=== PATIENT | male | born 1960 | race African-American/Black ===

== ENCOUNTER 2020-06-13 17:03 | Emergency (ER) | payer MEDICARE ==
[~2020-06-13 17:03] MED LIST: ASPIRIN EC81 MG PO; COREG12.5 MG PO; COZAAR50 MG PO; ELAVIL25 MG PO; HALOPERIDOL2 MG PO; HUMALOG SC; LANTUS **100 UNITS/ SC; LEVEMIR FL100 UNIT/1 SC; LEXAPRO 10MG TA10 MG PO; LIPITOR40 MG PO; NEURONTIN300 MG PO; NORVASC5 MG PO; PANTOPRAZOLE SO40 MG PO; PLAVIX75 MG PO; PRINIVIL10 MG PO; SEROQUEL 25MG T25 MG PO; TIZANIDINE HCL2 MG PO
[2020-06-13 18:23] LABS: BASOPHIL 1.6 % (0-2); EOSINOPHIL 9.8 % (0-5); HCT 35.5 % (42.0-52.0); LYMPHOCYTE 25.1 % (15-48); MCH 27.5 pg (25.0-31.0); MCV 88.8 fL (78.0-100.0); MONOCYTE 6.4 % (0-12); MPV 12.4 fL (6.0-9.5); NEUTROPHIL 56.9 % (41-80); NRBC 0; PLT 202 K/uL (150-400); RDW 12.8 % (11.5-14.0); WBC 10.7 K/uL (4.0-10.5)
[2020-06-13 18:32] LABS: INR 1.06 (0.9-1.2); PROTHROMBIN TIME 13.1 SECONDS (11.4-13.6); PTT 29.6 SECONDS (22.2-34.7)
[2020-06-13 18:41] LABS: ALBUMIN 2.7 g/dL (3.4-5.0); BILIRUBIN - TOTAL 0.4 mg/dL (0.2-1.0); BUN/CREAT RATIO (CALC) 9.7 RATIO; CREATININE 2.48 mg/dL (0.67-1.17); GLOBULIN (CALCULATION) 4.1 g/dL; TOTAL PROTEIN 6.8 g/dL (6.4-8.2)
[2020-06-13] MEDS ORDERED: LASIX20 MG PO (20:35)
== END 2020-06-13 20:55 | disposition home or self-care (01) ==
LOC: FER 17:03
PROVIDERS: Emergency Medicine
DX: I50.9 Heart failure, unspecified (principal); R03.0 Elevated blood-pressure reading, without diagnosis of hypertension; R79.89 Other specified abnormal findings of blood chemistry; E11.9 Type 2 diabetes mellitus without complications; F03.90 Unspecified dementia, unspecified severity, without behavioral disturbance, psychotic disturbance, mood disturbance, and anxiety; Z95.5 Presence of coronary angioplasty implant and graft; Z89.511 Acquired absence of right leg below knee; Z20.822 Contact with and (suspected) exposure to COVID-19
CPT/HCPCS: 36415; 71045; 80053; 83880; 84484; 85025; 85610; 85730; 93005; U0002

== ENCOUNTER 2020-10-17 14:34 | Inpatient (IN) | payer MEDICARE ==
[~2020-10-17] VITALS: Ht 177.8 cm; Wt 99.3 kg
[~2020-10-17 14:34] MED LIST changes: +LASIX20 MG PO
[2020-10-17 17:22] LABS: BASOPHIL 1.3 % (0-2); EOSINOPHIL 7.5 % (0-5); HCT 33.8 % (42.0-52.0); HGB 10.6 g/dl (13.2-18.0); LYMPHOCYTE 22.4 % (15-48); MCH 27.5 pg (25.0-31.0); MCHC 31.4 g/dL (32.0-36.0); MCV 87.8 fL (78.0-100.0); MONOCYTE 6.2 % (0-12); MPV 12.2 fL (6.0-9.5); NEUTROPHIL 62.3 % (41-80); NRBC 0; PLT 221 K/uL (150-400); RBC 3.85 M/uL (4.70-6.00); RDW 12.9 % (11.5-14.0); WBC 9.9 K/uL (4.0-10.5)
[2020-10-17 17:32] LABS: ALBUMIN 2.5 g/dL (3.4-5.0); BILIRUBIN - TOTAL 0.2 mg/dL (0.2-1.0); BUN/CREAT RATIO (CALC) 9.8 RATIO; CREATININE 3.27 mg/dL (0.67-1.17); GLOBULIN (CALCULATION) 4.7 g/dL; POTASSIUM 3.2 mmol/L (3.5-5.1); TOTAL PROTEIN 7.2 g/dL (6.4-8.2)
[2020-10-17 20:51] LABS: BILIRUBIN NEGATIVE (NEGATIVE); BLOOD 1+ Ery/uL (NEGATIVE); CLARITY CLEAR (CLEAR); COLOR YELLOW (YELLOW); GLUCOSE (U) TRACE mg/dL (NORMAL); LEUKOCYTES NEGATIVE Leu/uL (NEGATIVE); NITRITE NEGATIVE (NEGATIVE); PROTEIN 3+ mg/dL (NEGATIVE); UROBILINOGEN 0.2 mg/dL (0.2-1.0); pH 6.5 (5.0-9.0)
[2020-10-17 21:01] LABS: URINARY RBC RARE
[2020-10-18 00:30] LABS: BUN/CREAT RATIO (CALC) 9.4 RATIO; CREATININE 3.41 mg/dL (0.67-1.17); MAGNESIUM 1.6 mg/dL (1.8-2.4); POTASSIUM 3.2 mmol/L (3.5-5.1)
[2020-10-18 06:42] LABS: INR 1.09 (0.9-1.2); PROTHROMBIN TIME 13.5 SECONDS (11.8-13.4); PTT 31.5 SECONDS (24.4-34.7)
[2020-10-18 06:43] LABS: BASOPHIL 1.3 % (0-2); EOSINOPHIL 7.8 % (0-5); HCT 31.3 % (42.0-52.0); HGB 9.9 g/dl (13.2-18.0); LYMPHOCYTE 23.4 % (15-48); MCH 27.4 pg (25.0-31.0); MCHC 31.6 g/dL (32.0-36.0); MCV 86.7 fL (78.0-100.0); MONOCYTE 5.5 % (0-12); MPV 12.6 fL (6.0-9.5); NEUTROPHIL 61.8 % (41-80); NRBC 0; PLT 226 K/uL (150-400); RBC 3.61 M/uL (4.70-6.00); RDW 12.7 % (11.5-14.0); WBC 9.5 K/uL (4.0-10.5)
[2020-10-18 07:11] LABS: ALBUMIN 2.4 g/dL (3.4-5.0); BILIRUBIN - TOTAL 0.4 mg/dL (0.2-1.0); CREATININE 3.45 mg/dL (0.67-1.17); GLOBULIN (CALCULATION) 3.8 g/dL; PHOSPHORUS 4.1 mg/dL (2.6-4.7); POTASSIUM 3.9 mmol/L (3.5-5.1); TOTAL PROTEIN 6.2 g/dL (6.4-8.2)
[2020-10-18] MEDS ORDERED: LASIX20 MG PO (08:52)
[2020-10-18] MEDS ORDERED: HYDRALAZINE25 MG PO (08:54)
[2020-10-18] MEDS ORDERED: VITAMIN D21250 MCG PO (08:54)
[2020-10-18] MEDS ORDERED: TRAZODONE HCL150 MG PO (08:56)
[2020-10-18 15:56] LABS: RETICULOCYTE COUNT 1.9 % (1.0-2.0)
[2020-10-18 16:07] LABS: IRON % SATURATION 12.9 %SAT (20-50)
[2020-10-18 16:34] LABS: FOLIC ACID (SERUM) 9.8 ng/mL (8.6-58.9)
--- NOTE | 2020-10-19 04:13 | NUR ---
PATIENT HAS HAD NO URINE OUTPUT THIS SHIFT, NOTIFIED PROVIDER WITH BLADDER SCAN RESULTS OF 297, PATIENT HAS BEEN URINATING ON HIS OWN BUT STATES THAT HE DOES NOT FEEL LIKE HE HAS TO GO AT THIS TIME. OK TO WAIT LONGER PER EMELYN CONTRERAS. WILL CONTINUE TO MONITOR AND NOTIFY PROVIDER OF CHANGES.
[2020-10-19 05:52] LABS: BASOPHIL 1.4 % (0-2); EOSINOPHIL 9.2 % (0-5); HCT 26.1 % (42.0-52.0); HGB 8.3 g/dl (13.2-18.0); LYMPHOCYTE 29.8 % (15-48); MCH 27.9 pg (25.0-31.0); MCHC 31.8 g/dL (32.0-36.0); MCV 87.6 fL (78.0-100.0); MONOCYTE 7.2 % (0-12); MPV 11.8 fL (6.0-9.5); NEUTROPHIL 52.1 % (41-80); NRBC 0; PLT 187 K/uL (150-400); RBC 2.98 M/uL (4.70-6.00); RDW 12.9 % (11.5-14.0); WBC 7.1 K/uL (4.0-10.5)
[2020-10-19 06:15] LABS: BILIRUBIN - TOTAL 0.3 mg/dL (0.2-1.0); BUN/CREAT RATIO (CALC) 8.7 RATIO; CREATININE 3.92 mg/dL (0.67-1.17); GLOBULIN (CALCULATION) 3.9 g/dL; PHOSPHORUS 4.3 mg/dL (2.6-4.7); POTASSIUM 3.2 mmol/L (3.5-5.1); TOTAL PROTEIN 5.9 g/dL (6.4-8.2)
--- NOTE | 2020-10-19 11:33 | NUR ---
10/19/20 Mr. Styles lives at home with his spouse. His spouse is his legal guardian. Mr. Styles has a rw, cane, wc, and 3in1. He uses a cane for ambulation. Ms. Styles has requested resources r/t bathing assitance, counseling for depression and patient's refusal to take medications. Ms. Styles choice [facility]. A referral was made to [facility] via [facility]. The HHR included a long term care social worker to evaluate for a Medicaid Waiver program. - Ms. Styles was educated to [facility], [facility] - respite, [facility], and In-Home services, Adult Day[facility] and [facility]. - Please notify [facility] at [phone] if patient is discharged over the weekend.
--- NOTE | 2020-10-19 14:40 | NUR ---
ENCOURAGED MR. RECIO TO USE URINAL IF ABLE TO. HE STATED HE DID NOT NEED TO GO. TO MY KNOWLEDGE HE IS CONTENIENT AND NO EVIDENCE OTHERWISE. BLADDER SCAN SHOWED ONLY 97ML IN BLADDER AT 1430. SCAN WAS DONE DUE TO NO UOP DURING PRIVATE WEALTH ADVISOR AND THUS FAR TODAY.
--- NOTE | 2020-10-19 16:44 | NUR ---
REINFORCED TO FAMILY THAT THERE IS TO BE ONLY 2 VISTORS PER PATIENT IN THE BUILDING AT A TIME. WAITING ROOMS ARE STILL CLOSED DUE TO COVID. FAMILY VERBALIZES UNDERSTANDING.
--- NOTE | 2020-10-19 18:58 | NUR ---
BLADDER SCAN AT [address] MONAHAN ANSWERED DR. CURRY PHONE AND PUT IN ORDER TO INSERT RODRIGEZ.
--- NOTE | 2020-10-19 19:27 | NUR ---
ORDERED RODRIGEZ B/C PT. HAD NOT VOIDED IN 24HRS. WENT IN TO TALK TO PT. WITH DAYSHIFT RNS. PT. REFUSED RODRIGEZ BUT AGREED TO TRY AND VOID. PT. VOIDED 675. DAY SHIFT RN NOTIFIED DIRECTOR MOBILE.
[2020-10-20 04:08] LABS: BASOPHIL 1.6 % (0-2); EOSINOPHIL 11.6 % (0-5); HCT 29.8 % (42.0-52.0); HGB 9.1 g/dl (13.2-18.0); LYMPHOCYTE 29.5 % (15-48); MCH 27.4 pg (25.0-31.0); MCHC 30.5 g/dL (32.0-36.0); MCV 89.8 fL (78.0-100.0); MONOCYTE 7.3 % (0-12); MPV 12.4 fL (6.0-9.5); NEUTROPHIL 49.7 % (41-80); NRBC 0; PLT 182 K/uL (150-400); RBC 3.32 M/uL (4.70-6.00); RDW 13.1 % (11.5-14.0); WBC 7.1 K/uL (4.0-10.5)
--- NOTE | 2020-10-20 05:30 | NUR ---
EMELYN NOTIFIED ME TO "RIDE" OUT THE PT.S BLOOD PRESSURES BECAUSE THEY HAVE CHANGED SO MUCH OF HIS BP MEDICATIONS TO FIND SOMETHING THAT HELPS BRING THEM DOWN. BP IS CURRENTLY THE BEST IT HAS BEEN ON MY SHIFT AT 153/69. ER, RN
[2020-10-20 07:53] LABS: BUN/CREAT RATIO (CALC) 8.8 RATIO; CREATININE 3.73 mg/dL (0.67-1.17); POTASSIUM 4.3 mmol/L (3.5-5.1)
[2020-10-20] MEDS ORDERED: APRESOLINE100 MG PO (10:53)
[2020-10-20] MEDS ORDERED: CARDURA1 MG PO (10:53)
[2020-10-20] MEDS ORDERED: POLY-IRON150 MG PO (10:53)
--- NOTE | 2020-10-20 13:56 | NUR ---
PATIENT DISCHARGED BY WHEELCHAIR ACCOMPANIED BY AND NURSE. DISCHARGE INSTRUCTIONS GIVEN TO AND PATIENT. VERBALIZED UNDERSTANDING. REITERATED MEDICATION CHANGES TO . LAURA NOIFIED OF DISCHARGE. PHONE NUMBERS FOR LAURA AND DR BATES GIVEN TO .
== END 2020-10-20 13:40 | disposition home health service (06) | DRG 291 ==
LOC: FER 14:34 → FICU 20:36
PROVIDERS: Emergency Medicine Emergency Medical Services; Nurse Practitioner; ADMIT Internal Medicine
DX: I13.0 Hypertensive heart and chronic kidney disease with heart failure and stage 1 through stage 4 chronic kidney disease, or unspecified chronic kidney disease (principal); I50.21 Acute systolic (congestive) heart failure; I16.1 Hypertensive emergency; N17.9 Acute kidney failure, unspecified; N18.4 Chronic kidney disease, stage 4 (severe); I47.2 Ventricular tachycardia; I42.9 Cardiomyopathy, unspecified; E11.22 Type 2 diabetes mellitus with diabetic chronic kidney disease; Z79.899 Other long term (current) drug therapy; Z79.82 Long term (current) use of aspirin; Z79.4 Long term (current) use of insulin; E78.5 Hyperlipidemia, unspecified; I73.9 Peripheral vascular disease, unspecified; F41.9 Anxiety disorder, unspecified; F32.9 Major depressive disorder, single episode, unspecified; I25.10 Atherosclerotic heart disease of native coronary artery without angina pectoris; Z95.5 Presence of coronary angioplasty implant and graft; F03.90 Unspecified dementia, unspecified severity, without behavioral disturbance, psychotic disturbance, mood disturbance, and anxiety; Z89.511 Acquired absence of right leg below knee; Z83.3 Family history of diabetes mellitus; Z80.8 Family history of malignant neoplasm of other organs or systems; E11.65 Type 2 diabetes mellitus with hyperglycemia; Z91.19 Patient's noncompliance with other medical treatment and regimen
CPT/HCPCS: 36415; 70450; 71045; 76770; 80048; 80053; 80061; 81001; 82553; 82607; 82746; 82962; 83540; 83550; 83735; 83880; 84100; 84484; 85025; 85610; 85730; 93005; 94010; 94762; J0360; J1644; J1940; J2060; J2916; J3420; J3475; J7030; J7120

== ENCOUNTER 2020-10-21 14:56 | Emergency (ER) | payer MEDICARE ==
[~2020-10-21 14:56] MED LIST changes: +APRESOLINE100 MG PO; +CARDURA1 MG PO; +HYDRALAZINE25 MG PO; +POLY-IRON150 MG PO; +TRAZODONE HCL150 MG PO; +VITAMIN D21250 MCG PO
[2020-10-21 16:23] LABS: INR 1.12 (0.9-1.2); PROTHROMBIN TIME 13.8 SECONDS (11.8-13.4)
[2020-10-21 16:27] LABS: BASOPHIL 1.1 % (0-2); EOSINOPHIL 8.7 % (0-5); HCT 30.3 % (42.0-52.0); HGB 9.2 g/dl (13.2-18.0); MCH 27.7 pg (25.0-31.0); MCHC 30.4 g/dL (32.0-36.0); MCV 91.3 fL (78.0-100.0); MONOCYTE 7.9 % (0-12); MPV 12.8 fL (6.0-9.5); NEUTROPHIL 62.1 % (41-80); NRBC 0; PLT 205 K/uL (150-400); RBC 3.32 M/uL (4.70-6.00); RDW 13.3 % (11.5-14.0); WBC 8.2 K/uL (4.0-10.5)
[2020-10-21 16:28] LABS: ALBUMIN 2.5 g/dL (3.4-5.0); BILIRUBIN - TOTAL 0.2 mg/dL (0.2-1.0); BUN/CREAT RATIO (CALC) 8.9 RATIO; CREATININE 3.83 mg/dL (0.67-1.17); GLOBULIN (CALCULATION) 3.8 g/dL; POTASSIUM 4.5 mmol/L (3.5-5.1); TOTAL PROTEIN 6.3 g/dL (6.4-8.2)
[2020-10-21 16:40] LABS: CKMB 1.9 ng/mL (0.0-3.6)
== END 2020-10-21 17:49 | disposition home or self-care (01) ==
LOC: FER 14:56
PROVIDERS: Emergency Medicine
DX: I13.2 Hypertensive heart and chronic kidney disease with heart failure and with stage 5 chronic kidney disease, or end stage renal disease (principal); I50.9 Heart failure, unspecified; E11.22 Type 2 diabetes mellitus with diabetic chronic kidney disease; N18.6 End stage renal disease; Z95.5 Presence of coronary angioplasty implant and graft
CPT/HCPCS: 36415; 36600; 71045; 71250; 80053; 82553; 82803; 83880; 84484; 85025; 85610; 85730; 93005; J1940

== ENCOUNTER 2020-12-10 22:19 | Inpatient (IN) | payer MEDICARE ==
[~2020-12-10] VITALS: Ht 178 cm; Wt 88.1 kg
[2020-12-11 00:15] LABS: BASOPHIL 0.7 % (0-2); EOSINOPHIL 1.5 % (0-5); HCT 23.8 % (42.0-52.0); HGB 7.1 g/dl (13.2-18.0); LYMPHOCYTE 6.2 % (15-48); MCH 26.8 pg (25.0-31.0); MCHC 29.8 g/dL (32.0-36.0); MCV 89.8 fL (78.0-100.0); MONOCYTE 5.1 % (0-12); NEUTROPHIL 85.9 % (41-80); NRBC 0; PLT 347 K/uL (150-400); RBC 2.65 M/uL (4.70-6.00); RDW 13.5 % (11.5-14.0); WBC 19.4 K/uL (4.0-10.5)
[2020-12-11 00:33] LABS: ALBUMIN 1.8 g/dL (3.4-5.0); BILIRUBIN - TOTAL 1.1 mg/dL (0.2-1.0); BUN/CREAT RATIO (CALC) 14.6 RATIO; CREATININE 4.51 mg/dL (0.67-1.17); POTASSIUM 4.4 mmol/L (3.5-5.1); TOTAL PROTEIN 7.8 g/dL (6.4-8.2)
[2020-12-11 05:16] LABS: BILIRUBIN NEGATIVE (NEGATIVE); BLOOD 1+ Ery/uL (NEGATIVE); CLARITY CLEAR (CLEAR); COLOR YELLOW (YELLOW); GLUCOSE (U) TRACE mg/dL (NORMAL); LEUKOCYTES NEGATIVE Leu/uL (NEGATIVE); NITRITE NEGATIVE (NEGATIVE); PROTEIN 3+ mg/dL (NEGATIVE); SPECIFIC GRAVITY 1.025 (1.001-1.030); pH 5.5 (5.0-9.0)
[2020-12-11 05:21] LABS: BACTERIA 1+; URINARY WBC RARE
[2020-12-11 05:22] LABS: AMORPHOUS URATES CRYSTALS MODERATE; SQUAMOUS EPITHELIAL CELLS RARE
[2020-12-11 07:28] LABS: C-REACTIVE PROTEIN >18.00 mg/dL (<=0.90); MAGNESIUM 1.5 mg/dL (1.8-2.4); PHOSPHORUS 4.3 mg/dL (2.6-4.7)
[2020-12-11 07:44] LABS: BUN/CREAT RATIO (CALC) 15.1 RATIO; CREATININE 4.65 mg/dL (0.67-1.17); MAGNESIUM 1.6 mg/dL (1.8-2.4); PHOSPHORUS 4.3 mg/dL (2.6-4.7); POTASSIUM 4.1 mmol/L (3.5-5.1)
[2020-12-11 07:56] LABS: HCT 19.9 % (42.0-52.0); MCH 27.3 pg (25.0-31.0); MCHC 31.2 g/dL (32.0-36.0); MCV 87.7 fL (78.0-100.0); MPV 11.5 fL (6.0-9.5); RBC 2.27 M/uL (4.70-6.00); RDW 13.8 % (11.5-14.0); WBC 19.1 K/uL (4.0-10.5)
[2020-12-11 08:02] LABS: HGB 6.2 g/dl (13.2-18.0)
[2020-12-11 08:26] LABS: RETICULOCYTE COUNT 1.4 % (1.0-2.0)
[2020-12-11 09:00] LABS: IRON % SATURATION 18.9 %SAT (20-50)
[2020-12-11 09:27] LABS: FOLIC ACID (SERUM) 13.2 ng/mL (8.6-58.9)
[2020-12-11] MEDS ORDERED: PLAVIX75 MG PO (11:26)
[2020-12-11] MEDS ORDERED: HYDRALAZINE25 MG PO (11:27)
[2020-12-11] MEDS ORDERED: ATARAX25 MG PO (11:28)
[2020-12-11] MEDS ORDERED: LANTUS100 UNIT/1 SC (11:29)
[2020-12-12 05:52] LABS: BASOPHIL 0.8 % (0-2); EOSINOPHIL 5.9 % (0-5); MCH 27.5 pg (25.0-31.0); MCHC 31.8 g/dL (32.0-36.0); MCV 86.3 fL (78.0-100.0); MPV 11.2 fL (6.0-9.5); NEUTROPHIL 72.5 % (41-80); NRBC 0; PLT 293 K/uL (150-400); RBC 2.55 M/uL (4.70-6.00); RDW 13.8 % (11.5-14.0); WBC 16.5 K/uL (4.0-10.5)
[2020-12-12 06:34] LABS: ALBUMIN 1.4 g/dL (3.4-5.0); BILIRUBIN - TOTAL 0.7 mg/dL (0.2-1.0); BUN/CREAT RATIO (CALC) 15.2 RATIO; CREATININE 4.4 mg/dL (0.67-1.17); GLOBULIN (CALCULATION) 5.4 g/dL; POTASSIUM 3.9 mmol/L (3.5-5.1); TOTAL PROTEIN 6.8 g/dL (6.4-8.2)
--- NOTE | 2020-12-12 13:13 | NUR ---
SPOKE WITH REGARDING HER REQUEST FOR SKILLED PLACEMENT OF HER . SHE STATED THAT SHE WOULD LIKE FOR HIM TO GO TO REHAB. SHE REQUESTED [place]. SPOKE WITH PT. HE STATED THAT HE DID NOT WANT TO GO TO SKILLED FACILITY,BUT WANTED TO RETURN HOME AND DID NOT WANT HOME [facility]AT[facility]. TC TO , HER VOICE MAIL IS FULL. CONTACTED SON FOR HIM TO GIVE HIS MOTHER A MESSAGE TO CONTACT ME.
[2020-12-13 06:18] LABS: ALBUMIN 1.4 g/dL (3.4-5.0); BILIRUBIN - TOTAL 0.4 mg/dL (0.2-1.0); BUN/CREAT RATIO (CALC) 15.3 RATIO; CREATININE 4.76 mg/dL (0.67-1.17); EOSINOPHIL 8.3 % (0-5); GLOBULIN (CALCULATION) 5.2 g/dL; HCT 22.4 % (42.0-52.0); LYMPHOCYTE 17.6 % (15-48); MAGNESIUM 1.9 mg/dL (1.8-2.4); MCH 27.3 pg (25.0-31.0); MCHC 31.3 g/dL (32.0-36.0); MCV 87.5 fL (78.0-100.0); MONOCYTE 6.8 % (0-12); MPV 11.5 fL (6.0-9.5); NEUTROPHIL 65.6 % (41-80); NRBC 0; PLT 296 K/uL (150-400); RBC 2.56 M/uL (4.70-6.00); TOTAL PROTEIN 6.6 g/dL (6.4-8.2); WBC 12.6 K/uL (4.0-10.5)
--- NOTE | 2020-12-13 15:47 | NUR ---
SPOKE WITH THIS DATE. SHE ADVISED THAT SHE IS PT. GUARDIAN. SHE WOULD LIKE FOR HIM TO GO [facility] [place]. SENT REFERRAL TO [facility].
[2020-12-14 06:21] LABS: EOSINOPHIL 7.8 % (0-5); HGB 7.1 g/dl (13.2-18.0); LYMPHOCYTE 17.3 % (15-48); MCH 27.4 pg (25.0-31.0); MCHC 30.9 g/dL (32.0-36.0); MCV 88.8 fL (78.0-100.0); MONOCYTE 5.8 % (0-12); MPV 11.1 fL (6.0-9.5); NEUTROPHIL 67.3 % (41-80); NRBC 0; PLT 294 K/uL (150-400); RBC 2.59 M/uL (4.70-6.00); RDW 14.1 % (11.5-14.0); WBC 14.3 K/uL (4.0-10.5)
[2020-12-14 06:59] LABS: BUN/CREAT RATIO (CALC) 15.1 RATIO; CREATININE 5.04 mg/dL (0.67-1.17); PHOSPHORUS 4.9 mg/dL (2.6-4.7); POTASSIUM 4.3 mmol/L (3.5-5.1)
[2020-12-14] MEDS ORDERED: MARINOL5 MG PO (13:44)
[2020-12-14 16:01] LABS: EOSINOPHIL 8.5 % (0-5); HCT 25.3 % (42.0-52.0); HGB 7.9 g/dl (13.2-18.0); LYMPHOCYTE 12.3 % (15-48); MCH 27.8 pg (25.0-31.0); MCHC 31.2 g/dL (32.0-36.0); MCV 89.1 fL (78.0-100.0); NEUTROPHIL 72.4 % (41-80); NRBC 0; PLT 342 K/uL (150-400); RBC 2.84 M/uL (4.70-6.00); RDW 13.9 % (11.5-14.0); WBC 15.3 K/uL (4.0-10.5)
[2020-12-14 16:19] LABS: BUN/CREAT RATIO (CALC) 14.7 RATIO; CREATININE 4.97 mg/dL (0.67-1.17); PHOSPHORUS 4.6 mg/dL (2.6-4.7); POTASSIUM 4.6 mmol/L (3.5-5.1)
--- NOTE | 2020-12-14 17:25 | NUR ---
DUE TO [facility] WITH [facility] NOT RETURNING MY PHONE CALLS I CONTACTED HANY, OPERATIONS TECH AT [facility]. SHE ADVISED THAT THEY WOULD ACCEPT PATIENT, HOWEVER HE IS [facility] AND THEY HAVE NOT STARTED PRECERT. I EXPLAINED TO HANY, I WAS UNDER THE IMPRESSION THAT THE PREAUTH HAD BEEN STARTED. HANY ADVISED THAT THEY WOULD NOT HEAR FROM INSURANCE UNTIL THURSDAY. ADVISED DR. CURRY OF THIS INFORMATION.
[2020-12-15 03:42] LABS: EOSINOPHIL 8.6 % (0-5); HCT 23.3 % (42.0-52.0); HGB 7.3 g/dl (13.2-18.0); LYMPHOCYTE 14.8 % (15-48); MCH 27.7 pg (25.0-31.0); MCHC 31.3 g/dL (32.0-36.0); MCV 88.3 fL (78.0-100.0); MONOCYTE 5.3 % (0-12); MPV 11.5 fL (6.0-9.5); NEUTROPHIL 69.4 % (41-80); NRBC 0; PLT 347 K/uL (150-400); RBC 2.64 M/uL (4.70-6.00); WBC 15.3 K/uL (4.0-10.5)
[2020-12-15 03:53] LABS: CREATININE 5.22 mg/dL (0.67-1.17); MAGNESIUM 1.8 mg/dL (1.8-2.4); PHOSPHORUS 4.7 mg/dL (2.6-4.7); POTASSIUM 4.6 mmol/L (3.5-5.1)
[2020-12-15 04:31] LABS: LYMPHOCYTE(M) 13 % (15-48); MONOCYTE(M) 3 % (0-12); NEUTROPHILS(M) 75 % (41-80); TOTAL CELL COUNT 100
[2020-12-15 04:32] LABS: BASOPHIL(M) 1 % (0-2); EOSINOPHIL(M) 8 % (0-5)
[2020-12-15 04:34] LABS: PLATELET ESTIMATE NORMAL
[2020-12-15 04:35] LABS: PLATELET MORPHOLOGY NORMAL
[2020-12-15 04:37] LABS: ANISOCYTOSIS SLIGHT; DACRYOCYTES (TEAR DROP CELLS) RARE
--- NOTE | 2020-12-15 12:33 | NUR ---
CALL TO [facility] NO ROHO IN FACILITY, MESSAGE LEFT, ALSO FAXED REQUEST. LEFT BUTTOCK SMALL SUPERFICIAL OPEN AREA PINK CENTER, LEFT FOOT OUTER EDGE VERY GUMMY YELLOW DRAINAGE WITH OPEN AREA WITH CRUSTY GRANULAR TISSUE THICK TO EDGES, WOUND CONSULT PUT IN TO RE-EVAL. INFORMED SISTER THAT IF WE COULD GET A ROHO MATTRESS WE WOULD PUT ONE ON HIS BED. MD INFORMED OF LEFT FOOT AND SISTER'S CONCERNS
[2020-12-16 06:02] LABS: BASOPHIL 1.1 % (0-2); EOSINOPHIL 8.1 % (0-5); HCT 22.8 % (42.0-52.0); HGB 6.9 g/dl (13.2-18.0); LYMPHOCYTE 16.5 % (15-48); MCH 27.3 pg (25.0-31.0); MCHC 30.3 g/dL (32.0-36.0); MCV 90.1 fL (78.0-100.0); MONOCYTE 5.2 % (0-12); MPV 10.5 fL (6.0-9.5); NEUTROPHIL 68.2 % (41-80); NRBC 0; PLT 326 K/uL (150-400); RBC 2.53 M/uL (4.70-6.00); RDW 14.1 % (11.5-14.0); WBC 13.7 K/uL (4.0-10.5)
[2020-12-16 06:33] LABS: IRON % SATURATION 32.7 %SAT (20-50)
[2020-12-16 06:53] LABS: BUN/CREAT RATIO (CALC) 15.5 RATIO; CREATININE 4.64 mg/dL (0.67-1.17); MAGNESIUM 1.8 mg/dL (1.8-2.4); PHOSPHORUS 4.3 mg/dL (2.6-4.7); POTASSIUM 4.8 mmol/L (3.5-5.1)
[2020-12-16 12:35] LABS: BILIRUBIN NEGATIVE (NEGATIVE); BLOOD 1+ Ery/uL (NEGATIVE); CLARITY CLEAR (CLEAR); COLOR YELLOW (YELLOW); GLUCOSE (U) TRACE mg/dL (NORMAL); LEUKOCYTES NEGATIVE Leu/uL (NEGATIVE); NITRITE NEGATIVE (NEGATIVE); PROTEIN 2+ mg/dL (NEGATIVE); SPECIFIC GRAVITY 1.025 (1.001-1.030); UROBILINOGEN 0.2 mg/dL (0.2-1.0); pH 5.5 (5.0-9.0)
[2020-12-16 12:42] LABS: AMORPHOUS URATES CRYSTALS MODERATE; BACTERIA TRACE
[2020-12-16 12:49] LABS: URINE CREATININE 93.52 mg/dL (29.00-226.00)
--- NOTE | 2020-12-16 19:50 | NUR ---
1 PRBC IS ORDERED FOR HGB OF 6.9.PATIENT IS REFUSING UNIT OF BLOOD. GRADES 7 AND 8 VISITING TEACHER NOTIFIED
--- NOTE | 2020-12-16 22:20 | NUR ---
PATIENT NOW AGREES TO RECEIVE PRBC
[2020-12-17 03:14] LABS: BASOPHIL 1.1 % (0-2); EOSINOPHIL 7.2 % (0-5); HCT 26.6 % (42.0-52.0); HGB 8.3 g/dl (13.2-18.0); LYMPHOCYTE 12.9 % (15-48); MCH 27.9 pg (25.0-31.0); MCHC 31.2 g/dL (32.0-36.0); MCV 89.3 fL (78.0-100.0); MONOCYTE 5.1 % (0-12); MPV 10.6 fL (6.0-9.5); NEUTROPHIL 72.9 % (41-80); NRBC 0; PLT 349 K/uL (150-400); RBC 2.98 M/uL (4.70-6.00); RDW 14.2 % (11.5-14.0); WBC 14.7 K/uL (4.0-10.5)
[2020-12-17 03:31] LABS: CREATININE 4.26 mg/dL (0.67-1.17); MAGNESIUM 1.7 mg/dL (1.8-2.4); PHOSPHORUS 4.1 mg/dL (2.6-4.7)
[2020-12-17 03:36] LABS: BASOPHIL(M) 0 % (0-2); EOSINOPHIL(M) 10 % (0-5); LYMPHOCYTE(M) 17 % (15-48); MONOCYTE(M) 9 % (0-12); NEUTROPHILS(M) 74 % (41-80); TOTAL CELL COUNT 100
[2020-12-17 03:37] LABS: PLATELET ESTIMATE NORMAL; PLATELET MORPHOLOGY NORMAL
--- NOTE | 2020-12-17 03:51 | NUR ---
PATIENT'S VANC TROUGH IS 20.6. ATTEMPTED TO CALL NIGHT PHARMACY 3 TIMES WITH NO ANSWER. CALLED SUPERVISOR INSECTICIDE TO NOTIFY VANC TROUGH AND BEING UNSUCCESSFUL WITH PHARMACY, WAS INSTRUCTED TO HOLD VANCOMYCIN.
--- NOTE | 2020-12-17 13:17 | NUR ---
PT. HAS BEEN ACCEPTED AT [facility]. FAX FOR DC SUMMARY IS [phone]. REPORT NUMBER IS [phone].
[2020-12-17 16:08] LABS: A/G RATIO 0.5 (0.7-1.7); ALBUMIN 2.1 g/dL (2.9-4.4); ALPHA-1-GLOBULIN 0.3 g/dL (0.0-0.4); ALPHA-2-GLOBULIN 1.1 g/dL (0.4-1.0); BETA GLOBULIN 0.9 g/dL (0.7-1.3); GAMMA GLOBULIN 2.2 g/dL (0.4-1.8); GLOBULIN, TOTAL 4.5 g/dL (2.2-3.9); IMMUNOGLOBULIN A, QN, SERUM 444 mg/dL (61-437); IMMUNOGLOBULIN G, QN, SERUM 2390 mg/dL (603-1613); IMMUNOGLOBULIN M, QN, SERUM 30 mg/dL (20-172); M-SPIKE 0.2 g/dL (Not Observed); PROTEIN, TOTAL, SERUM 6.6 g/dL (6.0-8.5)
--- NOTE | 2020-12-17 22:30 | NUR ---
PAINTED LEFT FOOT WOUND WITH BETADINE PER ORDER. PATIENT TOLERATED WELL.
[2020-12-18 09:57] LABS: BASOPHIL 1.3 % (0-2); EOSINOPHIL 7.2 % (0-5); HCT 29.3 % (42.0-52.0); HGB 8.9 g/dl (13.2-18.0); LYMPHOCYTE 11.5 % (15-48); MCH 27.6 pg (25.0-31.0); MCHC 30.4 g/dL (32.0-36.0); MCV 90.7 fL (78.0-100.0); MONOCYTE 4.1 % (0-12); MPV 10.7 fL (6.0-9.5); NEUTROPHIL 74.8 % (41-80); NRBC 0.4; PLT 378 K/uL (150-400); RBC 3.23 M/uL (4.70-6.00); RDW 15.1 % (11.5-14.0); WBC 14.2 K/uL (4.0-10.5)
[2020-12-18 10:37] LABS: BILIRUBIN - TOTAL 0.5 mg/dL (0.2-1.0); BUN/CREAT RATIO (CALC) 15.2 RATIO; C-REACTIVE PROTEIN 6.9 mg/dL (<=0.90); CREATININE 4.21 mg/dL (0.67-1.17); GLOBULIN (CALCULATION) 5.3 g/dL; MAGNESIUM 1.8 mg/dL (1.8-2.4); PHOSPHORUS 4.1 mg/dL (2.6-4.7); TOTAL PROTEIN 7.3 g/dL (6.4-8.2)
[2020-12-19 06:46] LABS: BASOPHIL 0.9 % (0-2); EOSINOPHIL 5.5 % (0-5); HCT 28.8 % (42.0-52.0); HGB 8.6 g/dl (13.2-18.0); LYMPHOCYTE 11.7 % (15-48); MCH 27.3 pg (25.0-31.0); MCHC 29.9 g/dL (32.0-36.0); MCV 91.4 fL (78.0-100.0); MONOCYTE 4.7 % (0-12); MPV 11.3 fL (6.0-9.5); NEUTROPHIL 76.1 % (41-80); NRBC 0.9; PLT 398 K/uL (150-400); RBC 3.15 M/uL (4.70-6.00); RDW 15.6 % (11.5-14.0); WBC 13.2 K/uL (4.0-10.5)
[2020-12-19 07:25] LABS: ALBUMIN 1.9 g/dL (3.4-5.0); BILIRUBIN - TOTAL 0.5 mg/dL (0.2-1.0); CREATININE 4.07 mg/dL (0.67-1.17); GLOBULIN (CALCULATION) 5.8 g/dL; POTASSIUM 4.5 mmol/L (3.5-5.1); TOTAL PROTEIN 7.7 g/dL (6.4-8.2)
[2020-12-19 07:38] LABS: TOTAL CELL COUNT 100
[2020-12-19 07:42] LABS: EOSINOPHIL(M) 5 % (0-5); LYMPHOCYTE(M) 11 % (15-48); MONOCYTE(M) 5 % (0-12); NEUTROPHILS(M) 79 % (41-80)
[2020-12-19 07:43] LABS: PLATELET ESTIMATE NORMAL; PLATELET MORPHOLOGY NORMAL
[2020-12-19 07:46] LABS: ANISOCYTOSIS SLIGHT; POLYCHROMASIA SLIGHT
[2020-12-19] MEDS ORDERED: AMLODIPINE BESY10 MG PO (11:48)
[2020-12-19 15:57] LABS: BUN/CREAT RATIO (CALC) 15.2 RATIO; CREATININE 4.01 mg/dL (0.67-1.17); POTASSIUM 4.5 mmol/L (3.5-5.1)
[2020-12-20 06:55] LABS: BASOPHIL 0.8 % (0-2); EOSINOPHIL 7.8 % (0-5); HCT 29.5 % (42.0-52.0); HGB 9.2 g/dl (13.2-18.0); LYMPHOCYTE 15.2 % (15-48); MCH 28.3 pg (25.0-31.0); MCHC 31.2 g/dL (32.0-36.0); MCV 90.8 fL (78.0-100.0); MONOCYTE 5.2 % (0-12); MPV 10.6 fL (6.0-9.5); NEUTROPHIL 70.2 % (41-80); NRBC 0.5; PLT 367 K/uL (150-400); RBC 3.25 M/uL (4.70-6.00); RDW 16.1 % (11.5-14.0)
[2020-12-20 07:13] LABS: ALBUMIN 1.9 g/dL (3.4-5.0); BILIRUBIN - TOTAL 0.5 mg/dL (0.2-1.0); BUN/CREAT RATIO (CALC) 14.7 RATIO; CREATININE 3.87 mg/dL (0.67-1.17); GLOBULIN (CALCULATION) 5.6 g/dL; POTASSIUM 4.1 mmol/L (3.5-5.1); TOTAL PROTEIN 7.5 g/dL (6.4-8.2)
[2020-12-20 12:08] LABS: HCT 26.2 % (42.0-52.0)
[2020-12-21 07:03] LABS: BASOPHIL 0.9 % (0-2); EOSINOPHIL 8.6 % (0-5); HCT 22.8 % (42.0-52.0); HGB 6.9 g/dl (13.2-18.0); LYMPHOCYTE 14.8 % (15-48); MCH 27.9 pg (25.0-31.0); MCHC 30.3 g/dL (32.0-36.0); MCV 92.3 fL (78.0-100.0); MPV 10.1 fL (6.0-9.5); NEUTROPHIL 68.2 % (41-80); NRBC 0.2; PLT 284 K/uL (150-400); RBC 2.47 M/uL (4.70-6.00); RDW 16.7 % (11.5-14.0); WBC 11.9 K/uL (4.0-10.5)
[2020-12-21 07:16] LABS: ALBUMIN 1.8 g/dL (3.4-5.0); BILIRUBIN - TOTAL 0.4 mg/dL (0.2-1.0); BUN/CREAT RATIO (CALC) 15.2 RATIO; CREATININE 3.68 mg/dL (0.67-1.17); GLOBULIN (CALCULATION) 4.7 g/dL; POTASSIUM 4.1 mmol/L (3.5-5.1); TOTAL PROTEIN 6.5 g/dL (6.4-8.2)
[2020-12-21 14:18] LABS: HGB 8.6 g/dL (13.2-18.0)
--- NOTE | 2020-12-21 16:15 | NUR ---
RECEIVED MESSAGE FROM [facility]. THEY WANT TO TRY IN HOME THERAPY AND HH. ATTEMPTED TO CALL HAD TO LEAVE A MESSAGE.
[2020-12-22 14:33] LABS: EOSINOPHIL 8.7 % (0-5); HCT 29.9 % (42.0-52.0); LYMPHOCYTE 11.2 % (15-48); MCHC 31.1 g/dL (32.0-36.0); MCV 93.1 fL (78.0-100.0); MONOCYTE 6.1 % (0-12); MPV 10.2 fL (6.0-9.5); NEUTROPHIL 72.6 % (41-80); NRBC 0; PLT 282 K/uL (150-400); RBC 3.21 M/uL (4.70-6.00); RDW 16.2 % (11.5-14.0); WBC 13.7 K/uL (4.0-10.5)
[2020-12-22 14:35] LABS: HGB 9.3 g/dl (13.2-18.0)
[2020-12-22 14:54] LABS: BILIRUBIN - TOTAL 0.3 mg/dL (0.2-1.0); BUN/CREAT RATIO (CALC) 14.2 RATIO; CREATININE 3.46 mg/dL (0.67-1.17); GLOBULIN (CALCULATION) 5.3 g/dL; POTASSIUM 4.2 mmol/L (3.5-5.1); TOTAL PROTEIN 7.3 g/dL (6.4-8.2)
[2020-12-23 04:36] LABS: BASOPHIL 0.9 % (0-2); EOSINOPHIL 9.7 % (0-5); HCT 27.1 % (42.0-52.0); HGB 8.5 g/dl (13.2-18.0); LYMPHOCYTE 17.7 % (15-48); MCHC 31.4 g/dL (32.0-36.0); MCV 92.5 fL (78.0-100.0); MONOCYTE 6.3 % (0-12); MPV 10.3 fL (6.0-9.5); NRBC 0; PLT 273 K/uL (150-400); RBC 2.93 M/uL (4.70-6.00); RDW 16.1 % (11.5-14.0); WBC 12.8 K/uL (4.0-10.5)
[2020-12-23 04:59] LABS: ALBUMIN 1.9 g/dL (3.4-5.0); BILIRUBIN - TOTAL 0.4 mg/dL (0.2-1.0); CREATININE 3.36 mg/dL (0.67-1.17); POTASSIUM 3.8 mmol/L (3.5-5.1); TOTAL PROTEIN 6.9 g/dL (6.4-8.2)
--- NOTE | 2020-12-24 11:24 | NUR ---
TALKED WITH PATIENT ABOUT APPOINTMENT WITH DR SPENCER 12/25/20 @ 1:15 PM, TO MAKE SURE THAT HE KEEPS THAT APPOINTMENT BECAUSE THE DOCTOR NEEDED TO CHECK HIS WOUND. IV WAS DC'ED AND WOUND BANDAGE WAS CHANGED, SCANT BLOODY DISCHARGE. DRAIN TUBING WAS STILL IN PLACE PER DR SPENCER. PER PATIENT SISTER IS TO COME AND BRING CLOTHES AND TAKE HIM HOME.
--- NOTE | 2020-12-24 13:32 | NUR ---
ADVISED BY DR. NAJERA THAT PT. WILL BE D/C TODAY. DR. NAJERA WANTS HIM TO HAVE HH FOR WOUND CARE AND PT. DR. SPENCER WILL SEE PT. ON THURSDAY FOR A DRESSING CHANGE. [facility] HAS AGREED TO ACCEPT PT. ALONSO CHRISTENSEN THAT PT. WILL BE SEEING DR. SPENCER ON THURSDAY.
== END 2020-12-24 17:35 | disposition home or self-care (01) | DRG 853 ==
LOC: FER 22:19 → FMS 12-11 06:05
PROVIDERS: Emergency Medicine; Family Medicine; Internal Medicine Nephrology; Nurse Anesthetist, Certified Registered; Nurse Practitioner; Podiatrist Foot & Ankle Surgery; ADMIT Internal Medicine
PROC: 30233N1 Transfusion of Nonautologous Red Blood Cells into Peripheral Vein, Percutaneous Approach (ICD-10-PCS; 2020-12-11)
PROC: 30233N1 Transfusion of Nonautologous Red Blood Cells into Peripheral Vein, Percutaneous Approach (ICD-10-PCS; 2020-12-16)
PROC: 0Y6N0Z9 Detachment at Left Foot, Partial 1st Ray, Open Approach (ICD-10-PCS; principal; 2020-12-20 08:00)
PROC: 30233N1 Transfusion of Nonautologous Red Blood Cells into Peripheral Vein, Percutaneous Approach (ICD-10-PCS; 2020-12-21)
DX: A41.01 Sepsis due to Methicillin susceptible Staphylococcus aureus (principal); G93.41 Metabolic encephalopathy; N30.01 Acute cystitis with hematuria; N17.9 Acute kidney failure, unspecified; M86.9 Osteomyelitis, unspecified; I50.22 Chronic systolic (congestive) heart failure; D62 Acute posthemorrhagic anemia; I13.0 Hypertensive heart and chronic kidney disease with heart failure and stage 1 through stage 4 chronic kidney disease, or unspecified chronic kidney disease; I47.2 Ventricular tachycardia; N18.4 Chronic kidney disease, stage 4 (severe); Z20.822 Contact with and (suspected) exposure to COVID-19; R65.20 Severe sepsis without septic shock; E11.51 Type 2 diabetes mellitus with diabetic peripheral angiopathy without gangrene; E78.5 Hyperlipidemia, unspecified; F41.9 Anxiety disorder, unspecified; F32.9 Major depressive disorder, single episode, unspecified; F03.90 Unspecified dementia, unspecified severity, without behavioral disturbance, psychotic disturbance, mood disturbance, and anxiety; E11.22 Type 2 diabetes mellitus with diabetic chronic kidney disease; D63.1 Anemia in chronic kidney disease; E11.621 Type 2 diabetes mellitus with foot ulcer; L97.529 Non-pressure chronic ulcer of other part of left foot with unspecified severity; I69.398 Other sequelae of cerebral infarction; Z95.5 Presence of coronary angioplasty implant and graft; Z89.511 Acquired absence of right leg below knee; Z83.3 Family history of diabetes mellitus; Z82.49 Family history of ischemic heart disease and other diseases of the circulatory system; Z88.2 Allergy status to sulfonamides
CPT/HCPCS: 36415; 36430; 70450; 71045; 73718; 80048; 80053; 80202; 81001; 82570; 82607; 82746; 82784; 82962; 83036; 83540; 83550; 83605; 83735; 83880; 84100; 84145; 84155; 84156; 84165; 84300; 84484; 85014; 85018; 85025; 86140; 86335; 86850; 86900; 86901; 86922; 87040; 87070; 87075; 87077; 87088; 87186; 87205; 88305; 93005; 94010; 94640; 94760; 94761; 94762; 96365; 96375; 97110; 97162; 97166; 97530-GP; 97535; C9113; J0690; J0692; J0696; J1644; J1956; J2001; J2250; J2916; J3370; J3475; J7030; J7050; J7120; P9016; Q5106; U0002

== ENCOUNTER 2021-01-06 23:04 | Inpatient (IN) | payer MEDICARE ==
[~2021-01-06] VITALS: Ht 177.8 cm; Wt 85.5 kg
[~2021-01-06 23:04] MED LIST changes: +AMLODIPINE BESY10 MG PO; +ATARAX25 MG PO; +LANTUS100 UNIT/1 SC; +MARINOL5 MG PO
[2021-01-06 23:44] LABS: EOSINOPHIL 12.7 % (0-5); HCT 31.9 % (42.0-52.0); HGB 9.9 g/dl (13.2-18.0); LYMPHOCYTE 23.8 % (15-48); MCH 28.4 pg (25.0-31.0); MCV 91.4 fL (78.0-100.0); MONOCYTE 7.5 % (0-12); MPV 11.5 fL (6.0-9.5); NEUTROPHIL 53.8 % (41-80); NRBC 0; PLT 224 K/uL (150-400); RBC 3.49 M/uL (4.70-6.00); RDW 15.1 % (11.5-14.0); WBC 8.4 K/uL (4.0-10.5)
[2021-01-07 00:17] LABS: ALBUMIN 2.5 g/dL (3.4-5.0); BILIRUBIN - TOTAL 0.3 mg/dL (0.2-1.0); BUN/CREAT RATIO (CALC) 13.6 RATIO; C-REACTIVE PROTEIN 0.4 mg/dL (<=0.90); CREATININE 3.3 mg/dL (0.67-1.17); POTASSIUM 4.3 mmol/L (3.5-5.1); TOTAL PROTEIN 7.5 g/dL (6.4-8.2)
[2021-01-07 04:52] LABS: BILIRUBIN NEGATIVE (NEGATIVE); BLOOD 1+ Ery/uL (NEGATIVE); CLARITY CLEAR (CLEAR); COLOR YELLOW (YELLOW); GLUCOSE (U) TRACE mg/dL (NORMAL); LEUKOCYTES NEGATIVE Leu/uL (NEGATIVE); NITRITE NEGATIVE (NEGATIVE); PROTEIN 3+ mg/dL (NEGATIVE); SPECIFIC GRAVITY >=1.030 (1.001-1.030); UROBILINOGEN 0.2 mg/dL (0.2-1.0)
[2021-01-07 04:57] LABS: BACTERIA TRACE; SQUAMOUS EPITHELIAL CELLS RARE
[2021-01-07] MEDS ORDERED: TRAZODONE HCL150 MG PO (05:39)
[2021-01-07] MEDS ORDERED: HUMALOG 75100 UNIT/M SC (05:39)
[2021-01-07 06:40] LABS: BASOPHIL 0.7 % (0-2); EOSINOPHIL 0.3 % (0-5); HCT 32.4 % (42.0-52.0); HGB 9.8 g/dl (13.2-18.0); LYMPHOCYTE 7.9 % (15-48); MCH 28.1 pg (25.0-31.0); MCHC 30.2 g/dL (32.0-36.0); MCV 92.8 fL (78.0-100.0); MONOCYTE 1.3 % (0-12); MPV 12.1 fL (6.0-9.5); NEUTROPHIL 89.6 % (41-80); NRBC 0; PLT 235 K/uL (150-400); RBC 3.49 M/uL (4.70-6.00); WBC 6.1 K/uL (4.0-10.5)
[2021-01-07 07:11] LABS: BUN/CREAT RATIO (CALC) 13.1 RATIO; CREATININE 3.43 mg/dL (0.67-1.17); POTASSIUM 4.9 mmol/L (3.5-5.1)
[2021-01-07 15:19] LABS: BUN/CREAT RATIO (CALC) 14.7 RATIO; CREATININE 3.39 mg/dL (0.67-1.17); POTASSIUM 4.9 mmol/L (3.5-5.1)
--- NOTE | 2021-01-07 16:03 | NUR ---
01/07/21 Mr. Styles lives at home with his spouse / guardian. He is current with [facility] and Ms. Styles would like to continue the services. [facility] was notified of admission via [facility]. He has a motorized wc, rw, 3in1, wc, and s. chair.
[2021-01-08 06:51] LABS: BASOPHIL 0.7 % (0-2); EOSINOPHIL 0.8 % (0-5); HCT 26.8 % (42.0-52.0); HGB 8.3 g/dl (13.2-18.0); LYMPHOCYTE 19.6 % (15-48); MCH 28.4 pg (25.0-31.0); MCV 91.8 fL (78.0-100.0); MONOCYTE 7.2 % (0-12); MPV 11.9 fL (6.0-9.5); NEUTROPHIL 71.5 % (41-80); NRBC 0; PLT 202 K/uL (150-400); RBC 2.92 M/uL (4.70-6.00); RDW 14.9 % (11.5-14.0); WBC 9.6 K/uL (4.0-10.5)
[2021-01-08 07:11] LABS: ALBUMIN 2.4 g/dL (3.4-5.0); BILIRUBIN - TOTAL 0.3 mg/dL (0.2-1.0); BUN/CREAT RATIO (CALC) 14.2 RATIO; CREATININE 3.79 mg/dL (0.67-1.17); GLOBULIN (CALCULATION) 4.1 g/dL; MAGNESIUM 1.6 mg/dL (1.8-2.4); POTASSIUM 4.8 mmol/L (3.5-5.1); TOTAL PROTEIN 6.5 g/dL (6.4-8.2)
[2021-01-09 14:35] LABS: BASOPHIL 1.2 % (0-2); EOSINOPHIL 3.6 % (0-5); HCT 30.9 % (42.0-52.0); HGB 9.2 g/dl (13.2-18.0); LYMPHOCYTE 20.4 % (15-48); MCH 28.3 pg (25.0-31.0); MCHC 29.8 g/dL (32.0-36.0); MCV 95.1 fL (78.0-100.0); MONOCYTE 5.6 % (0-12); MPV 12.1 fL (6.0-9.5); NEUTROPHIL 68.9 % (41-80); NRBC 0; PLT 215 K/uL (150-400); RBC 3.25 M/uL (4.70-6.00); RDW 15.3 % (11.5-14.0); WBC 8.9 K/uL (4.0-10.5)
[2021-01-09 14:48] LABS: ALBUMIN 2.7 g/dL (3.4-5.0); BILIRUBIN - TOTAL 0.4 mg/dL (0.2-1.0); BUN/CREAT RATIO (CALC) 16.6 RATIO; CREATININE 4.09 mg/dL (0.67-1.17); GLOBULIN (CALCULATION) 4.3 g/dL; PHOSPHORUS 5.4 mg/dL (2.6-4.7); POTASSIUM 4.9 mmol/L (3.5-5.1)
[2021-01-09 14:49] LABS: MAGNESIUM 2.4 mg/dL (1.8-2.4)
[2021-01-10 06:52] LABS: BASOPHIL 1.5 % (0-2); HGB 8.3 g/dl (13.2-18.0); LYMPHOCYTE 25.8 % (15-48); MCH 28.3 pg (25.0-31.0); MCHC 30.7 g/dL (32.0-36.0); MCV 92.2 fL (78.0-100.0); MONOCYTE 8.1 % (0-12); MPV 12.4 fL (6.0-9.5); NEUTROPHIL 59.4 % (41-80); NRBC 0; PLT 194 K/uL (150-400); RBC 2.93 M/uL (4.70-6.00); RDW 15.1 % (11.5-14.0); WBC 8.7 K/uL (4.0-10.5)
[2021-01-10 07:19] LABS: BUN/CREAT RATIO (CALC) 16.3 RATIO; CREATININE 4.17 mg/dL (0.67-1.17); MAGNESIUM 2.3 mg/dL (1.8-2.4); POTASSIUM 4.9 mmol/L (3.5-5.1)
[2021-01-11 07:31] LABS: BUN/CREAT RATIO (CALC) 16.8 RATIO; CREATININE 4.4 mg/dL (0.67-1.17); MAGNESIUM 2.2 mg/dL (1.8-2.4)
[2021-01-11 07:41] LABS: BASOPHIL 0.3 % (0-2); EOSINOPHIL 0 % (0-5); HCT 30.1 % (42.0-52.0); HGB 9.2 g/dl (13.2-18.0); LYMPHOCYTE 10.7 % (15-48); MCHC 30.6 g/dL (32.0-36.0); MCV 91.8 fL (78.0-100.0); MPV 12.7 fL (6.0-9.5); NEUTROPHIL 87.1 % (41-80); NRBC 0.3; PLT 224 K/uL (150-400); RBC 3.28 M/uL (4.70-6.00); RDW 15.3 % (11.5-14.0); WBC 7.8 K/uL (4.0-10.5)
[2021-01-11 07:49] LABS: POTASSIUM 6.6 mmol/L (3.5-5.1)
--- NOTE | 2021-01-11 09:54 | NUR ---
01/11/21 Please monitor for 02 needs. Please notify [facility] at [phone] if patient is dischared over the weekend.
[2021-01-11 10:55] LABS: BUN/CREAT RATIO (CALC) 17.7 RATIO; CREATININE 4.34 mg/dL (0.67-1.17); POTASSIUM 5.9 mmol/L (3.5-5.1)
[2021-01-12 06:26] LABS: BUN/CREAT RATIO (CALC) 18.7 RATIO; CREATININE 4.11 mg/dL (0.67-1.17)
[2021-01-12 06:33] LABS: POTASSIUM 4.3 mmol/L (3.5-5.1)
[2021-01-13 06:43] LABS: BASOPHIL 0.8 % (0-2); EOSINOPHIL 4.5 % (0-5); HCT 30.8 % (42.0-52.0); HGB 9.5 g/dl (13.2-18.0); LYMPHOCYTE 13.3 % (15-48); MCH 28.7 pg (25.0-31.0); MCHC 30.8 g/dL (32.0-36.0); MCV 93.1 fL (78.0-100.0); MONOCYTE 6.5 % (0-12); MPV 12.7 fL (6.0-9.5); NEUTROPHIL 74.4 % (41-80); NRBC 0.8; PLT 241 K/uL (150-400); RBC 3.31 M/uL (4.70-6.00); RDW 16.1 % (11.5-14.0)
[2021-01-13 06:56] LABS: CREATININE 3.71 mg/dL (0.67-1.17); POTASSIUM 4.5 mmol/L (3.5-5.1)
[2021-01-13 15:15] LABS: RETICULOCYTE COUNT 3.2 % (1.0-2.0)
[2021-01-13 15:31] LABS: IRON % SATURATION 19.2 %SAT (20-50)
[2021-01-13 15:58] LABS: FOLIC ACID (SERUM) 4.7 ng/mL (8.6-58.9)
[2021-01-13 20:48] LABS: BILIRUBIN NEGATIVE (NEGATIVE); BLOOD TRACE-INTACT Ery/uL (NEGATIVE); CLARITY CLEAR (CLEAR); COLOR YELLOW (YELLOW); GLUCOSE (U) NORMAL (NORMAL); LEUKOCYTES NEGATIVE Leu/uL (NEGATIVE); NITRITE NEGATIVE (NEGATIVE); PROTEIN 2+ mg/dL (NEGATIVE); UROBILINOGEN 0.2 mg/dL (0.2-1.0)
[2021-01-13 20:54] LABS: AMORPHOUS URATES CRYSTALS TRACE; SQUAMOUS EPITHELIAL CELLS RARE; URINARY WBC RARE
[2021-01-14 06:48] LABS: EOSINOPHIL 7.7 % (0-5); HCT 32.6 % (42.0-52.0); MCH 28.3 pg (25.0-31.0); MCHC 30.7 g/dL (32.0-36.0); MCV 92.4 fL (78.0-100.0); MPV 12.5 fL (6.0-9.5); NEUTROPHIL 70.8 % (41-80); NRBC 0.3; PLT 249 K/uL (150-400); RBC 3.53 M/uL (4.70-6.00); RDW 16.5 % (11.5-14.0)
[2021-01-14 07:09] LABS: CREATININE 3.57 mg/dL (0.67-1.17); POTASSIUM 4.3 mmol/L (3.5-5.1)
--- NOTE | 2021-01-14 17:11 | NUR ---
PT REFUSED 1700 GLUCOSE CHECK, MD AWARE.
[2021-01-15 06:22] LABS: BASOPHIL 1.1 % (0-2); EOSINOPHIL 8.4 % (0-5); HCT 29.4 % (42.0-52.0); HGB 8.9 g/dl (13.2-18.0); LYMPHOCYTE 17.9 % (15-48); MCH 27.8 pg (25.0-31.0); MCHC 30.3 g/dL (32.0-36.0); MCV 91.9 fL (78.0-100.0); MONOCYTE 8.1 % (0-12); MPV 12.6 fL (6.0-9.5); NEUTROPHIL 64.1 % (41-80); NRBC 0.3; PLT 247 K/uL (150-400); RDW 17.1 % (11.5-14.0); WBC 9.8 K/uL (4.0-10.5)
[2021-01-15 06:44] LABS: CREATININE 3.85 mg/dL (0.67-1.17); MAGNESIUM 1.8 mg/dL (1.8-2.4); PHOSPHORUS 4.5 mg/dL (2.6-4.7); POTASSIUM 4.3 mmol/L (3.5-5.1)
[2021-01-15] MEDS ORDERED: BUMETANIDE2 MG PO (15:47)
[2021-01-15] MEDS ORDERED: DUONEB 2.5-0.5M1 AMP NEB (15:47)
== END 2021-01-15 17:04 | disposition home health service (06) | DRG 291 ==
LOC: FER 23:04 → FTCU 01-07 04:19 → FMS 01-14 19:38
PROVIDERS: Emergency Medicine Emergency Medical Services; Family Medicine; Internal Medicine; Internal Medicine Nephrology; Nurse Practitioner; ADMIT Internal Medicine
DX: I13.0 Hypertensive heart and chronic kidney disease with heart failure and stage 1 through stage 4 chronic kidney disease, or unspecified chronic kidney disease (principal); J96.01 Acute respiratory failure with hypoxia; I50.43 Acute on chronic combined systolic (congestive) and diastolic (congestive) heart failure; G93.41 Metabolic encephalopathy; N17.9 Acute kidney failure, unspecified; N18.4 Chronic kidney disease, stage 4 (severe); I16.1 Hypertensive emergency; Z20.822 Contact with and (suspected) exposure to COVID-19; E11.22 Type 2 diabetes mellitus with diabetic chronic kidney disease; D50.9 Iron deficiency anemia, unspecified; E11.649 Type 2 diabetes mellitus with hypoglycemia without coma; F41.9 Anxiety disorder, unspecified; F32.9 Major depressive disorder, single episode, unspecified; F03.90 Unspecified dementia, unspecified severity, without behavioral disturbance, psychotic disturbance, mood disturbance, and anxiety; E78.5 Hyperlipidemia, unspecified; E11.51 Type 2 diabetes mellitus with diabetic peripheral angiopathy without gangrene; E87.5 Hyperkalemia; L89.152 Pressure ulcer of sacral region, stage 2; Z87.891 Personal history of nicotine dependence; Z89.511 Acquired absence of right leg below knee; Z89.412 Acquired absence of left great toe; Z89.422 Acquired absence of other left toe(s); Z79.4 Long term (current) use of insulin; Z79.02 Long term (current) use of antithrombotics/antiplatelets; Z79.82 Long term (current) use of aspirin; Z79.899 Other long term (current) drug therapy; Z88.2 Allergy status to sulfonamides; Z86.73 Personal history of transient ischemic attack (TIA), and cerebral infarction without residual deficits; Z95.5 Presence of coronary angioplasty implant and graft; Z83.3 Family history of diabetes mellitus; Z80.8 Family history of malignant neoplasm of other organs or systems; Z82.49 Family history of ischemic heart disease and other diseases of the circulatory system
CPT/HCPCS: 36415; 36600; 71045; 71250; 80048; 80053; 81001; 82140; 82607; 82746; 82803; 82962; 83036; 83540; 83550; 83605; 83735; 83880; 84100; 84145; 84484; 85025; 86140; 87040; 87088; 93005; 94640; 94660; 94664; 94760; 94762; 97162; 97166; 97530; 97530-GP; 97535; J0360; J0610; J1100; J1644; J1815; J1940; J2060; J2405; J2543; J2916; J2930; J3370; J3475; J7042; J7050; Q5106; U0002

== ENCOUNTER 2021-01-21 15:13 | Inpatient (IN) | payer MEDICARE ==
[~2021-01-21] VITALS: Ht 177.8 cm; Wt 92.0 kg
[~2021-01-21 15:13] MED LIST changes: +BUMETANIDE2 MG PO; +DUONEB 2.5-0.5M1 AMP NEB; +HUMALOG 75100 UNIT/M SC; +ISOSORBIDE MONO30 MG PO; +ZESTRIL5 MG PO
[2021-01-21 15:58] LABS: BASOPHIL 0.1 % (0-2); EOSINOPHIL 2.5 % (0-5); HGB 10.7 g/dl (13.2-18.0); LYMPHOCYTE 6.4 % (15-48); MCH 28.4 pg (25.0-31.0); MCHC 30.6 g/dL (32.0-36.0); MCV 92.8 fL (78.0-100.0); MONOCYTE 4.2 % (0-12); NEUTROPHIL 85.6 % (41-80); NRBC 0; PLT 232 K/uL (150-400); RBC 3.77 M/uL (4.70-6.00); RDW 17.3 % (11.5-14.0); WBC 15.3 K/uL (4.0-10.5)
[2021-01-21 16:07] LABS: INR 0.98 (0.9-1.2); PROTHROMBIN TIME 12.4 SECONDS (11.8-13.4); PTT 28.1 SECONDS (24.4-34.7)
[2021-01-21 16:15] LABS: ALBUMIN 2.9 g/dL (3.4-5.0); BILIRUBIN - TOTAL 0.6 mg/dL (0.2-1.0); CREATININE 3.4 mg/dL (0.67-1.17); GLOBULIN (CALCULATION) 4.2 g/dL; TOTAL PROTEIN 7.1 g/dL (6.4-8.2)
[2021-01-21 16:20] LABS: LACTIC ACID 1.2 mmol/L (0.4-1.9)
[2021-01-21 17:07] LABS: BILIRUBIN NEGATIVE (NEGATIVE); BLOOD TRACE-INTACT Ery/uL (NEGATIVE); CLARITY CLEAR (CLEAR); COLOR YELLOW (YELLOW); GLUCOSE (U) TRACE mg/dL (NORMAL); LEUKOCYTES NEGATIVE Leu/uL (NEGATIVE); NITRITE NEGATIVE (NEGATIVE); PROTEIN 2+ mg/dL (NEGATIVE); UROBILINOGEN 0.2 mg/dL (0.2-1.0); pH 5.5 (5.0-9.0)
[2021-01-21 17:10] LABS: ECSTASY (MDMA) NEGATIVE (NEGATIVE); MARIJUANA (THC) NEGATIVE (NEGATIVE); METHADONE NEGATIVE (NEGATIVE); OPIATES POSITIVE (NEGATIVE)
[2021-01-21 17:11] LABS: AMPHETAMINES NEGATIVE (NEGATIVE); BARBITURATES NEGATIVE (NEGATIVE); OXYCODONE NEGATIVE (NEGATIVE)
[2021-01-21 17:14] LABS: URINARY WBC RARE
[2021-01-21 17:15] LABS: BACTERIA 1+
[2021-01-22 05:35] LABS: BASOPHIL 0.1 % (0-2); EOSINOPHIL 0 % (0-5); HCT 37.1 % (42.0-52.0); HGB 11.5 g/dl (13.2-18.0); LYMPHOCYTE 5.8 % (15-48); MCH 28.8 pg (25.0-31.0); MONOCYTE 0.5 % (0-12); MPV 11.7 fL (6.0-9.5); NEUTROPHIL 93.2 % (41-80); NRBC 0; PLT 218 K/uL (150-400); RBC 3.99 M/uL (4.70-6.00); RDW 17.2 % (11.5-14.0)
[2021-01-22 05:36] LABS: WBC 8.3 K/uL (4.0-10.5)
[2021-01-22 06:47] LABS: ALBUMIN 2.9 g/dL (3.4-5.0); BILIRUBIN - TOTAL 0.6 mg/dL (0.2-1.0); CREATININE 3.29 mg/dL (0.67-1.17); PHOSPHORUS 5.2 mg/dL (2.6-4.7); POTASSIUM 5.2 mmol/L (3.5-5.1); TOTAL PROTEIN 6.9 g/dL (6.4-8.2)
--- NOTE | 2021-01-23 04:07 | NUR ---
PT. WAS EDUCATED ON THE IMPORTANCE OF WEARING THE BIPAP AT NIGHT. PT. REFUSED TO WEAR AT THIS TIME. RT HAS SPOKEN WITH AND EDUCATED PT. ON THE SUBJECT. MATERIAL HANDLER 2ND SHIFT NOTIFIED. KAVEH,RN
[2021-01-23 07:41] LABS: BASOPHIL 0.1 % (0-2); EOSINOPHIL 6.6 % (0-5); HCT 31.4 % (42.0-52.0); HGB 9.8 g/dl (13.2-18.0); LYMPHOCYTE 10.7 % (15-48); MCH 28.7 pg (25.0-31.0); MCHC 31.2 g/dL (32.0-36.0); MCV 91.8 fL (78.0-100.0); MONOCYTE 5.3 % (0-12); MPV 11.9 fL (6.0-9.5); NEUTROPHIL 76.8 % (41-80); NRBC 0; PLT 206 K/uL (150-400); RBC 3.42 M/uL (4.70-6.00); RDW 17.1 % (11.5-14.0); WBC 14.1 K/uL (4.0-10.5)
[2021-01-23 08:15] LABS: ALBUMIN 2.4 g/dL (3.4-5.0); BILIRUBIN - TOTAL 0.5 mg/dL (0.2-1.0); CREATININE 3.39 mg/dL (0.67-1.17); GLOBULIN (CALCULATION) 3.5 g/dL; POTASSIUM 4.8 mmol/L (3.5-5.1); TOTAL PROTEIN 5.9 g/dL (6.4-8.2)
[2021-01-24 05:57] LABS: BASOPHIL 0.1 % (0-2); EOSINOPHIL 9.3 % (0-5); HCT 31.6 % (42.0-52.0); HGB 10.1 g/dl (13.2-18.0); LYMPHOCYTE 13.6 % (15-48); MCH 29.1 pg (25.0-31.0); MCV 91.1 fL (78.0-100.0); MONOCYTE 6.7 % (0-12); MPV 12.6 fL (6.0-9.5); NEUTROPHIL 69.9 % (41-80); NRBC 0; PLT 201 K/uL (150-400); RBC 3.47 M/uL (4.70-6.00); RDW 16.9 % (11.5-14.0); WBC 13.4 K/uL (4.0-10.5)
[2021-01-24 06:37] LABS: CREATININE 3.25 mg/dL (0.67-1.17); MAGNESIUM 1.9 mg/dL (1.8-2.4); PHOSPHORUS 4.6 mg/dL (2.6-4.7); POTASSIUM 4.2 mmol/L (3.5-5.1)
--- NOTE | 2021-01-24 09:40 | NUR ---
01/24/21 Mr. Styles lives at home with his spouse. Their 20 y/o daughter also lives in the home. She stays with Mr. Styles at night when Ms. Styles is working. - He has a motorized wc, rw, 3in1, and s. chair. Ms. Styles has requested a hospital bed. - [facility] is current with nursing, OT and PT. [facility] will include a swer to determine if patient may be elegible for a Waiver program. - A list of sitter services was left at bedside as discussed with Ms. Styles.
[2021-01-24] MEDS ORDERED: BUMETANIDE2 MG PO (17:22)
--- NOTE | 2021-01-24 18:22 | NUR ---
PT DISCHARGED IV REMOVED REVIEWED PAPERWORK WITH PATIENT AND . ALL QUESTIONS WERE ANSWERED, PT WAS STABLE WITH NO COMPLAINTS, TRANSFERRED VIA WHEELCHAIR DOWN TO PRIVATE VEHICLE.
== END 2021-01-24 18:10 | disposition home health service (06) | DRG 291 ==
LOC: FER 15:13 → FTCU 17:31
PROVIDERS: Emergency Medicine; Internal Medicine; ADMIT Family Medicine
DX: I13.0 Hypertensive heart and chronic kidney disease with heart failure and stage 1 through stage 4 chronic kidney disease, or unspecified chronic kidney disease (principal); J96.01 Acute respiratory failure with hypoxia; I50.43 Acute on chronic combined systolic (congestive) and diastolic (congestive) heart failure; I16.1 Hypertensive emergency; N17.9 Acute kidney failure, unspecified; N18.4 Chronic kidney disease, stage 4 (severe); Z20.822 Contact with and (suspected) exposure to COVID-19; E87.5 Hyperkalemia; I35.1 Nonrheumatic aortic (valve) insufficiency; E11.22 Type 2 diabetes mellitus with diabetic chronic kidney disease; J44.9 Chronic obstructive pulmonary disease, unspecified; I25.10 Atherosclerotic heart disease of native coronary artery without angina pectoris; D50.9 Iron deficiency anemia, unspecified; L89.152 Pressure ulcer of sacral region, stage 2; R25.1 Tremor, unspecified; R94.31 Abnormal electrocardiogram [ECG] [EKG]; Z89.511 Acquired absence of right leg below knee; Z88.2 Allergy status to sulfonamides; Z86.73 Personal history of transient ischemic attack (TIA), and cerebral infarction without residual deficits; Z79.82 Long term (current) use of aspirin; Z79.4 Long term (current) use of insulin; Z79.02 Long term (current) use of antithrombotics/antiplatelets; Z79.899 Other long term (current) drug therapy; Z83.3 Family history of diabetes mellitus; Z82.49 Family history of ischemic heart disease and other diseases of the circulatory system; Z89.422 Acquired absence of other left toe(s)
CPT/HCPCS: 36415; 36600; 71045; 80048; 80053; 80305; 81001; 82803; 82962; 83605; 83735; 83880; 84100; 84484; 85025; 85610; 85730; 87040; 93005; 94010; 94640; 94660; 94664; J0360; J1644; J1650; J2930

== ENCOUNTER 2021-02-18 18:45 | Inpatient (IN) | payer MEDICARE ==
[~2021-02-18] VITALS: Ht 177.8 cm; Wt 41.8 kg
[2021-02-18 20:55] LABS: BASOPHIL 0.6 % (0-2); EOSINOPHIL 2.2 % (0-5); HCT 35.4 % (42.0-52.0); HGB 10.7 g/dl (13.2-18.0); LYMPHOCYTE 11.8 % (15-48); MCH 28.6 pg (25.0-31.0); MCHC 30.2 g/dL (32.0-36.0); MCV 94.7 fL (78.0-100.0); MPV 12.3 fL (6.0-9.5); NEUTROPHIL 78.9 % (41-80); NRBC 0.1; PLT 236 K/uL (150-400); RBC 3.74 M/uL (4.70-6.00); RDW 16.7 % (11.5-14.0); WBC 15.6 K/uL (4.0-10.5)
[2021-02-18 21:11] LABS: BILIRUBIN NEGATIVE (NEGATIVE); BLOOD 2+ Ery/uL (NEGATIVE); CLARITY CLEAR (CLEAR); COLOR YELLOW (YELLOW); GLUCOSE (U) NORMAL (NORMAL); LEUKOCYTES 1+ Leu/uL (NEGATIVE); NITRITE NEGATIVE (NEGATIVE); PROTEIN 2+ mg/dL (NEGATIVE); SPECIFIC GRAVITY 1.025 (1.001-1.030); UROBILINOGEN 0.2 mg/dL (0.2-1.0); pH 5.5 (5.0-9.0)
[2021-02-18 21:19] LABS: BACTERIA 3+; URINARY WBC 20-50
[2021-02-18 21:28] LABS: PRO-BNP > 35000 pg/mL (<125)
[2021-02-18 21:53] LABS: INFLUENZA A NAA NEGATIVE (NEGATIVE)
[2021-02-18 22:02] LABS: ALBUMIN 2.8 g/dL (3.4-5.0); BILIRUBIN - TOTAL 0.5 mg/dL (0.2-1.0); BUN/CREAT RATIO (CALC) 18.5 RATIO; C-REACTIVE PROTEIN 9.5 mg/dL (<=0.90); CREATININE 4.06 mg/dL (0.67-1.17); GLOBULIN (CALCULATION) 4.3 g/dL; POTASSIUM 4.2 mmol/L (3.5-5.1); TOTAL PROTEIN 7.1 g/dL (6.4-8.2)
[2021-02-18 22:05] LABS: CORONAVIRUS 2019 SARS-COV-2 POSITIVE (NEGATIVE)
[2021-02-19 07:22] LABS: BASOPHIL 0.3 % (0-2); EOSINOPHIL 0.1 % (0-5); HCT 32.1 % (42.0-52.0); HGB 9.8 g/dl (13.2-18.0); MCH 28.7 pg (25.0-31.0); MCHC 30.5 g/dL (32.0-36.0); MCV 94.1 fL (78.0-100.0); MONOCYTE 1.4 % (0-12); NEUTROPHIL 93.5 % (41-80); NRBC 0; PLT 198 K/uL (150-400); RBC 3.41 M/uL (4.70-6.00)
[2021-02-19 07:26] LABS: WBC 16.6 K/uL (4.0-10.5)
[2021-02-19 07:40] LABS: ALBUMIN 2.7 g/dL (3.4-5.0); BILIRUBIN - TOTAL 0.5 mg/dL (0.2-1.0); BUN/CREAT RATIO (CALC) 18.8 RATIO; CREATININE 4.15 mg/dL (0.67-1.17); GLOBULIN (CALCULATION) 4.1 g/dL; POTASSIUM 4.3 mmol/L (3.5-5.1); TOTAL PROTEIN 6.8 g/dL (6.4-8.2)
[2021-02-20 07:13] LABS: BASOPHIL 0.1 % (0-2); EOSINOPHIL 0 % (0-5); HCT 29.9 % (42.0-52.0); HGB 9.2 g/dl (13.2-18.0); LYMPHOCYTE 12.2 % (15-48); MCH 28.5 pg (25.0-31.0); MCHC 30.8 g/dL (32.0-36.0); MCV 92.6 fL (78.0-100.0); MONOCYTE 5.2 % (0-12); MPV 12.8 fL (6.0-9.5); NEUTROPHIL 82.3 % (41-80); NRBC 0.2; PLT 202 K/uL (150-400); RBC 3.23 M/uL (4.70-6.00); RDW 16.3 % (11.5-14.0); WBC 9.4 K/uL (4.0-10.5)
[2021-02-20 07:26] LABS: ALBUMIN 2.5 g/dL (3.4-5.0); BILIRUBIN - TOTAL 0.3 mg/dL (0.2-1.0); CREATININE 4.34 mg/dL (0.67-1.17); GLOBULIN (CALCULATION) 3.4 g/dL; MAGNESIUM 1.7 mg/dL (1.8-2.4); PHOSPHORUS 5.1 mg/dL (2.6-4.7); TOTAL PROTEIN 5.9 g/dL (6.4-8.2)
--- NOTE | 2021-02-20 13:03 | NUR ---
02/20/21 Mr. Styles lives at home with his spouse and daughter. He has a hoepsital bed, motorized wc, rw, 3in1, and s. chair. He is followed by [facility] and they have been notified of admission. Ms. Styles plans for Mr. Styles to return home. A referral has been sent to [facility] for home 02 at 2L per spouse's choice.
--- NOTE | 2021-02-20 23:27 | NUR ---
PT WOULD NOT LET THE NURSE TOUCH OR ASSESS PT. PT REFUSED ALL MEDS INCLUDING INSULIN. PT WOULD NOT ANSWER ANY ASSESSMENT QUESTIONS FOR NURSE. PT PULLED COVER OVER HEAD AND ROLLED OVER IN BED TELLING NURSE TO LEAVE HIM ALONE AND TO LEAVE THE ROOM MULTIPLE TIMES. NURSE LEFT ROOM AFRAID PT WOULD GET VIOLENT AND ALERTED TRANSCRIBING OPERATORS SUPERVISOR OF REFUSAL OF CARE.
--- NOTE | 2021-02-21 05:25 | NUR ---
PT IS MORE COOPERATIVE ONCE MORE AWAKE BUT IS ACCUSING STAFF OF TAKING HIS FRONT TEETH. NURSE CALLED TCU TO SEE IF THEY WERE LOST DURING TRANSFER. TCU STATED PT ONLY CAME IN WITH BOTTOM SET AND IS AT HOME LOOKING FOR UPPER SET.
[2021-02-21 07:17] LABS: BASOPHIL 0 % (0-2); EOSINOPHIL 0 % (0-5); HCT 30.6 % (42.0-52.0); HGB 9.6 g/dl (13.2-18.0); LYMPHOCYTE 8.7 % (15-48); MCH 28.5 pg (25.0-31.0); MCHC 31.4 g/dL (32.0-36.0); MCV 90.8 fL (78.0-100.0); MONOCYTE 5.1 % (0-12); MPV 12.8 fL (6.0-9.5); NEUTROPHIL 85.7 % (41-80); NRBC 0; PLT 196 K/uL (150-400); RBC 3.37 M/uL (4.70-6.00); WBC 10.1 K/uL (4.0-10.5)
[2021-02-21 07:28] LABS: CREATININE 4.33 mg/dL (0.67-1.17); PHOSPHORUS 6.1 mg/dL (2.6-4.7); POTASSIUM 4.7 mmol/L (3.5-5.1)
[2021-02-21 07:30] LABS: MAGNESIUM 2.3 mg/dL (1.8-2.4)
--- NOTE | 2021-02-21 10:20 | NUR ---
02/21/21 02 has been delivered. [facility] was notified of discharge. [facility] was requested to follow-up on the referral made at the time of the last admission for evaluation for a Waiver program.
--- NOTE | 2021-02-21 12:02 | NUR ---
PATIENT WITH ORDER FOR TELEMETRY, REFUSES TO WEAR, MD AWARE AND IS DISCHARGING TODAY SO WILL NOT NEED
[2021-02-21] MEDS ORDERED: CEFDINIR300 MG PO (17:20)
[2021-02-21] MEDS ORDERED: DUONEB 2.5-0.5M1 AMP NEB (17:20)
== END 2021-02-21 17:39 | disposition home health service (06) | DRG 177 ==
LOC: FER 18:45 → FMS 02-19 04:54 → FTCU 02-19 04:54 → FMS 02-20 19:57
PROVIDERS: Emergency Medicine Emergency Medical Services; Internal Medicine; Nurse Practitioner; ADMIT Internal Medicine
PROC: XW033G6 Introduction of REGN-COV2 Monoclonal Antibody into Peripheral Vein, Percutaneous Approach, New Technology Group 6 (ICD-10-PCS; 2021-02-18)
PROC: 8E0ZXY6 Isolation (ICD-10-PCS; principal; 2021-02-19)
PROC: XW033E5 Introduction of Remdesivir Anti-infective into Peripheral Vein, Percutaneous Approach, New Technology Group 5 (ICD-10-PCS; 2021-02-19)
DX: U07.1 COVID-19 (principal); J12.82 Pneumonia due to coronavirus disease 2019; J96.01 Acute respiratory failure with hypoxia; N17.9 Acute kidney failure, unspecified; N30.00 Acute cystitis without hematuria; I13.0 Hypertensive heart and chronic kidney disease with heart failure and stage 1 through stage 4 chronic kidney disease, or unspecified chronic kidney disease; I50.42 Chronic combined systolic (congestive) and diastolic (congestive) heart failure; J44.0 Chronic obstructive pulmonary disease with (acute) lower respiratory infection; C90.00 Multiple myeloma not having achieved remission; N18.4 Chronic kidney disease, stage 4 (severe); B96.1 Klebsiella pneumoniae [K. pneumoniae] as the cause of diseases classified elsewhere; E11.22 Type 2 diabetes mellitus with diabetic chronic kidney disease; I25.10 Atherosclerotic heart disease of native coronary artery without angina pectoris; D50.9 Iron deficiency anemia, unspecified; E11.51 Type 2 diabetes mellitus with diabetic peripheral angiopathy without gangrene; Z89.412 Acquired absence of left great toe; Z86.73 Personal history of transient ischemic attack (TIA), and cerebral infarction without residual deficits; Z89.511 Acquired absence of right leg below knee; Z83.3 Family history of diabetes mellitus; Z82.49 Family history of ischemic heart disease and other diseases of the circulatory system; Z80.8 Family history of malignant neoplasm of other organs or systems; Z88.2 Allergy status to sulfonamides
CPT/HCPCS: 36415; 36600; 71250; 80048; 80053; 81001; 82728; 82803; 82962; 83735; 83880; 84100; 84145; 84484; 85025; 85379; 86140; 87076; 87088; 87186; 93005; 94010; 94640; 97162; 97530-GP; C9399; J0696; J1100; J1815; J2185; J3475; J7050; J8540; M0243; Q0244; U0002

== ENCOUNTER 2021-10-04 14:23 | Emergency (ER) | payer MEDICARE ==
[~2021-10-04 14:23] MED LIST changes: +BUMEX1 MG PO; +CEFDINIR300 MG PO; +FERREX 150150 MG PO; +ISOSORBIDE MONO60 MG PO; +PROTONIX 40MG T40 MG PO
[2021-10-04 15:11] LABS: BASOPHIL 1.8 % (0-2); EOSINOPHIL 3.5 % (0-5); HCT 34.8 % (42.0-52.0); HGB 11.2 g/dl (13.2-18.0); LYMPHOCYTE 21.6 % (15-48); MCH 30.4 pg (25.0-31.0); MCHC 32.2 g/dL (32.0-36.0); MCV 94.6 fL (78.0-100.0); MONOCYTE 9.7 % (0-12); MPV 12.3 fL (6.0-9.5); NRBC 0.3; PLT 174 K/uL (150-400); RBC 3.68 M/uL (4.70-6.00); RDW 15.7 % (11.5-14.0)
[2021-10-04 15:31] LABS: ALBUMIN 3.2 g/dL (3.4-5.0); BILIRUBIN - TOTAL 0.6 mg/dL (0.2-1.0); BUN/CREAT RATIO (CALC) 6.4 RATIO; POTASSIUM 5.5 mmol/L (3.5-5.1); TOTAL PROTEIN 7.2 g/dL (6.4-8.2)
[2021-10-04 15:38] LABS: LACTIC ACID 2.7 mmol/L (0.4-1.9)
[2021-10-04 20:45] LABS: INR 1.17 (0.9-1.2); PROTHROMBIN TIME 14.6 SECONDS (11.9-13.9)
[2021-10-04 20:46] LABS: PTT 32.5 SECONDS (24.9-34.6)
[2021-10-04 23:22] LABS: BILIRUBIN 2+ mg/dL (NEGATIVE); BLOOD NEGATIVE Ery/uL (NEGATIVE); CLARITY CLEAR (CLEAR); COLOR YELLOW (YELLOW); GLUCOSE (U) TRACE mg/dL (NORMAL); LEUKOCYTES NEGATIVE Leu/uL (NEGATIVE); NITRITE POSITIVE (NEGATIVE); PROTEIN 2+ mg/dL (NEGATIVE); SPECIFIC GRAVITY >=1.030 (1.001-1.030); UROBILINOGEN 0.2 mg/dL (0.2-1.0); pH 5.5 (5.0-9.0)
[2021-10-04 23:29] LABS: AMPHETAMINES NEGATIVE (NEGATIVE); BARBITURATES NEGATIVE (NEGATIVE); ECSTASY (MDMA) NEGATIVE (NEGATIVE); MARIJUANA (THC) NEGATIVE (NEGATIVE); METHADONE NEGATIVE (NEGATIVE); OPIATES POSITIVE (NEGATIVE); OXYCODONE NEGATIVE (NEGATIVE)
[2021-10-04 23:39] LABS: AMORPHOUS URATES CRYSTALS MODERATE; TRANSITIONAL EPITHELIAL CELLS RARE; URINARY RBC RARE
== END 2021-10-05 01:55 | disposition other institution (70) ==
LOC: FER 14:23
PROVIDERS: Emergency Medicine; Internal Medicine
DX: R53.1 Weakness (principal); R77.8 Other specified abnormalities of plasma proteins; I12.0 Hypertensive chronic kidney disease with stage 5 chronic kidney disease or end stage renal disease; E11.22 Type 2 diabetes mellitus with diabetic chronic kidney disease; N18.6 End stage renal disease; I25.10 Atherosclerotic heart disease of native coronary artery without angina pectoris; I25.2 Old myocardial infarction; F01.50 Vascular dementia, unspecified severity, without behavioral disturbance, psychotic disturbance, mood disturbance, and anxiety; F19.10 Other psychoactive substance abuse, uncomplicated; Z20.822 Contact with and (suspected) exposure to COVID-19; Z28.310 Unvaccinated for COVID-19; Z99.2 Dependence on renal dialysis; Z95.5 Presence of coronary angioplasty implant and graft
CPT/HCPCS: 36415; 70450; 70486; 71045; 71250; 72125; 72128; 72131; 80053; 80305; 81001; 82140; 83605; 84145; 84484; 85025; 85610; 85730; 93005; J2543; U0002